=== PATIENT | male | born 1985 | race Hispanic/Latino ===

== ENCOUNTER → 2023-06-05 07:50 | Outpatient (REF) | payer OTHER, SELFPAY ==
[2023-06-05 09:25] LABS: ALT (SGPT) 37 U/L (0-50); AST (SGOT) 25 U/L (17-59); Alkaline Phosphatase 85 U/L (38-126); Blood Urea Nitrogen 20 mg/dl (9-20); Carbon Dioxide 28 mmol/L (22-30); Chloride 97 mmol/L (98-107); Glucose 162 mg/dl (70-99); Potassium 4.5 mmol/L (3.5-5.1); Sodium 136 mmol/L (135-145); Total Bilirubin 0.6 mg/dl (0.2-1.3); Total Protein 8.1 g/dl (6.3-8.2); eGFR > 60.00
[2023-06-05 09:26] LABS: Glycohemoglobin (HgbA1c) 8.1 % (4.0-5.6)
[2023-06-05 09:35] LABS: Vitamin D, 25-OH*** 41.6 ng/mL (30-80)
== END ==
LOC: REG 07:50
PROVIDERS: ATTENDING PHYSICIAN Nurse Practitioner Adult Health
DX: E11.9 Type 2 diabetes mellitus without complications (principal); E55.9 Vitamin D deficiency, unspecified
CPT/HCPCS: 36415; 80053; 82306; 83036

== ENCOUNTER 2024-02-21 19:47 | Emergency (ER) | payer OTHER, SELFPAY ==
[2024-02-21 19:49] VITALS: BP 145/92
--- NOTE | 2024-02-21 21:33 | ED.GENMED ---
History of Present Illness
General
Chief Complaint: Back Pain
Source: patient
Exam Limitations: none
Time Seen by Provider: 02/21/24 20:35
Nursing documentation reviewed up to this point in time: agreed with
History of Present Illness
History of Present Illness:
PT IS A 38 Y/O m WITH H/O NIDDM
on metformin
says that he felt some pain in his L buttock/low back 5 days ago was mild and he put some topical cream on it
he was still able to work, had more pain with movement/walking and sitting
but the pain got yesterday so he went to the pharmacy where he was told to take antiinflammatory
he took motrin 400 mg and felt better
today at work the pain got worse again
he says he didn't take any meds today
but told triage he took ibuprofena nd prednisoen (?)
he has not had any injury
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
he has never had back issues
denies numbness/tinling/weakness, fever, hematuria, abdomianl pain, n/v/d;
Past History
Past History
ED Past Medical History: NIDDM
Social History
Tobacco: Non-smoker
Alcohol: None
Drug: None
Personal:
Living: with family
Employment: Employed
Review of Systems
Review of Systems
Allergies reviewed?: Yes
All Other Systems: Not applicable
Phy Exam
Physical Exam
Physical Exam:
GENERAL: Alert , in no apparent distress, comfortable at rest
HEAD: NCAT
CARDIAC: Regular rate and rhythm, no edema
LUNGS: Clear breath sounds bilaterally, no acute respiratory distress, no wheezes/rales/rhonchi
ABDOMEN: Soft, without focal tenderness, no r/g, no cvat, normal bowel sounds, nondistended
NEUROLOGICAL: Alert and oriented, no focal neuro deficits, CN intact, 5/5 strength, sensation intact, ambulation slight limp left leg
SKIN: Warm and dry, no rash
MUSCULOSKELETAL: No edema, well perfused. Normal inspection of the left hip, left leg
Patient has no tenderness to palpation of the hip, minimal tenderness in the SI joint
He has no pain with flexion of the left hip, external and internal rotation
Back: No midline tenderness, mild dextroscoliosis, slight left paraspinal muscle tenderness on exam, no swelling
negative straight leg raise Bilaterally
PSYCH: Normal and appropriate interaction.
Course
Orders/Labs/Results
Orders:
Orders
02/21/24 21:18
Bedside Glucose- Treatment ONCE
02/21/24 21:19
Ketorolac [Toradol] 30 mg IM NOW STA
Lumbar Spine Complete, 4 View [CR Lumbar Spine Comp Min 4 Vw*] Urgent
Comment:
Reason For Exam: low back pain
Abnormal Lab Results
02/21/24
22:05
POC Glucose 163 H mg/dl
(70-99)
Vital Signs
Initial and Last Documented VS:
Initial Vital Signs
Temp Pulse Resp BP Pulse Ox
36.9 C 96 18 145/92 100
02/21/24 19:49 02/21/24 19:49 02/21/24 19:49 02/21/24 19:49 02/21/24 19:49
Last Documented Vital Signs
Temp Pulse Resp BP Pulse Ox
36.9 C 78 20 159/92 98
02/21/24 19:49 02/21/24 22:37 02/21/24 22:37 02/21/24 22:37 02/21/24 22:37
MDM/Problems Addressed
Differential Diagnosis Includes:
back strain SI joint pain, sciatica;
MDM/Problems Addressed:
38 Y/OM
NIDDM
here with L SI joint pain x 5 days
no injury
no radiation of pain down legs
no numbness/tingling/weakness, no ivda, no red flag symptoms/incontiencne
some relief with motrin but only had 2 doses
and pain got worse today
mild pain in L si joint
neg straight leg raise
normal pulses
pain worse with changing positions
xrays indep reviewed by me
some mild djd
will recommend nsaids, tylenol, rest, stretching, pt
*Critical Care Note
Total Time (30-74mins, 75-104mins- exclusive of procedures): Not Applicable
ED Attending Note
-
Portions of this chart may have been created with voice recognition software.� Occasional wrong word or��sound alike� substitutions may have occurred due to the inherent limitations of voice recognition software.
Discharge Plan
Departure
Patient Disposition: Home (Routine Discharge)
Date of Disposition: 02/21/24
Time of Disposition: 22:33
Patient with high blood pressure during this ER visit?: Yes
Condition: Fair
Covid-19: Not Applicable
Discharge Problem:
Sacroiliac joint pain
Instructions: Low Back Pain (DC)
Prescriptions:
New
ibuprofen 600 mg tablet
600 mg PO Q8H PRN (Reason: Pain) Qty: 20 0RF
No Action
cephalexin 500 mg capsule
500 mg PO BID 7 Days Qty: 14 0RF
Referrals:
NONE,* [Family Provider] -
Activity Restrictions/Additional Instructions:
YOUR XRAY SHOWS SOME DEGENERATIVE ARTHRITIS IN YOUR BACK
TAKE MOTRIN 600 MG EVERY 8 HOURS WITH FOOD FOR PAIN
TAKE TYLENOL 650 MG EVERY 4-6 HOURS (3-4 TIMES A DAY ) NEEDED FOR PAIN
HEAT/ICE OFF AND ON
AVOID HEAVY LIFTING
RETURN FOR;SEVERE PAIN, INABILITY TO WALK, INCONTINENCE, WEAKNESS, NUMBNESS, FEVER ETC.
Interventions
Interventions:
*Risk Screen - Suicide Last Done: 02/21/24 19:49
*General Assessment Last Done: 02/21/24 19:49
*Neglect/Abuse Screening Last Done: 02/21/24 19:49
*Nursing Disposition Last Done: 02/21/24 22:57
ED-Musculoskeletal Assessment Last Done: 02/21/24 21:19
Discharge Date and Time
Discharge Date/Time: 02/21/24 22:58
Print Language: BRITISH
[2024-02-21] MEDS: TORADOL 30 MG IM (21:59)
[2024-02-21 22:06] LABS: Glucose - Point of Care 163 mg/dl (70-99)
[2024-02-21 22:37] VITALS: BP 159/92
== END 2024-02-21 22:58 | disposition home or self-care (01) ==
LOC: EMR 19:47
PROVIDERS: EMERGENCY PHYSICIAN Emergency Medicine
DX: M53.3 Sacrococcygeal disorders, not elsewhere classified (principal); E11.9 Type 2 diabetes mellitus without complications
CPT/HCPCS: 99283; 72110; 82962

== ENCOUNTER → 2024-06-27 08:35 | Outpatient (REF) | payer OTHER, SELFPAY ==
[2024-06-27 10:12] LABS: Hematocrit 43.3 % (39.0-52.0); Hemoglobin 15.1 g/dL (13.0-18.0); Mean Corp Hgb Conc. 34.9 g/dL (33.0-37.0); Mean Corpuscular Hgb 29.1 pg (27.0-31.0); Mean Corpuscular Volume 83.4 fL (80.0-94.0); Platelet Count 246 10^3/uL (130-400); Red Blood Cell Count 5.19 10^6/uL (4.70-6.10); Red Cell Dist. Width 12.3 % (11.5-14.5); White Blood Cell Count 5.1 10^3/uL (4.8-10.8)
[2024-06-27 10:59] LABS: ALT (SGPT) 31 U/L (0-50); AST (SGOT) 20 U/L (17-59); Albumin 4.4 g/dl (3.5-5.0); Alkaline Phosphatase 109 U/L (38-126); Blood Urea Nitrogen 19 mg/dl (9-20); Calcium 9.4 mg/dl (8.4-10.2); Carbon Dioxide 23 mmol/L (22-30); Chloride 105 mmol/L (98-107); Glucose 205 mg/dl (70-99); HDL Cholesterol 37 mg/dl; LDL Cholesterol, Calculated 122 mg/dl; Potassium 4.4 mmol/L (3.5-5.1); Sodium 139 mmol/L (135-145); Total Bilirubin 0.7 mg/dl (0.2-1.3); Total Cholesterol 181 mg/dl (50-199); Total Protein 7.4 g/dl (6.3-8.2); Triglyceride 113 mg/dl (10-149); Very Low Density Lipoprotein 22 mg/dl (0-30); eGFR > 60.00
[2024-06-27 11:13] LABS: Glycohemoglobin (HgbA1c) 10.1 % (4.0-5.6)
[2024-06-27 11:25] LABS: Vitamin B12 652 pg/ml (239-931)
== END ==
LOC: CLINIC 08:35
PROVIDERS: ATTENDING PHYSICIAN Nurse Practitioner Adult Health
DX: E11.9 Type 2 diabetes mellitus without complications (principal); E55.9 Vitamin D deficiency, unspecified
CPT/HCPCS: 36415; 80053; 80061; 82306; 82607; 83036; 85027